=== PATIENT | male | born 1955 | race Caucasian/White ===

== ENCOUNTER 2024-08-18 16:09 | Emergency (ER) | payer OTHER ==
[~2024-08-18] VITALS: Ht 172.7 cm; Wt 83.9 kg
[2024-08-18 16:31] VITALS: BP 138/89; TEMP 98.3; O2SAT 99
== END 2024-08-18 17:49 | disposition home or self-care (01) ==
LOC: ER 17:19
DX: T16.2XXA Foreign body in left ear, initial encounter (principal); Z60.2 Problems related to living alone; W44.G1XA Audio device entering into or through a natural orifice, initial encounter; Y93.89 Activity, other specified; Y92.89 Other specified places as the place of occurrence of the external cause; Y99.8 Other external cause status